=== PATIENT | male | born 1995 | race Caucasian/White ===

== ENCOUNTER 2022-02-26 05:36 | Emergency (ER) | payer OTHER ==
[~2022-02-26] VITALS: Ht 172.7 cm; Wt 68.0 kg
--- NOTE | 2022-02-26 06:20 | NUR ---
PATIENT BIBSELF C/O + SI PLAN TO OD AND DRINK [facility] IS A/O X 4, RR EVEN AND UNLABORED NO SOB NOTED. PATIENT TAKEN TO ER BED 18. PATIENT WANDED BY SECURITY AND BELONGINGS TAKEN AND PLACED IN LOCKER. PATIENT VSS, PATIENT IS AFEBRILE.
[2022-02-26 06:23] VITALS: BP 129/70
--- NOTE | 2022-02-26 06:25 | NUR ---
URINE COLLECTED AND SENT TO LAB
--- NOTE | 2022-02-26 06:43 | NUR ---
COVID SWAB COLLECTED SENT TO LAB
[2022-02-26 07:09] LABS: BASOPHILS # (AUTO) 0.1 K/uL (0.0-0.2); BASOPHILS % (AUTO) 0.6 % (0.0-2.0); EOSINOPHILS % (AUTO) 10.1 % (0.0-6.0); HEMATOCRIT 41 % (39-51); HEMOGLOBIN 13.9 g/dL (13.5-17.5); LYMPHOCYTES % (AUTO) 23.3 % (20.0-44.0); MEAN CORPUSCULAR HGB CONC 34 g/dl (31.0-36.0); MEAN CORPUSCULAR VOLUME 86 fL (80-96); MONOCYTES # (AUTO) 0.7 K/uL (0.1-1.30); MONOCYTES % (AUTO) 8.1 % (2.0-12.0); NEUTROPHILS # (AUTO) 4.9 K/uL (1.8-8.9); NEUTROPHILS % (AUTO) 57.9 % (43.0-81.0); PLATELET COUNT (AUTO) 325 K/uL (150-450); RED BLOOD CELL COUNT(AUTO) 4.77 MIL/uL (4.5-6.0); WHITE BLOOD COUNT (AUTO) 8.4 K/uL (4.3-11.0)
[2022-02-26 07:21] LABS: BILIRUBIN,URINE NEGATIVE (NEGATIVE); COLOR,URINE YELLOW (YELLOW); LEUKOCYTE ESTERASE ,URINE NEGATIVE (NEGATIVE); NITRITE, URINE NEGATIVE (NEGATIVE); PROTEIN,URINE NEGATIVE (NEGATIVE); UGLUCOSE NEGATIVE (NEGATIVE); UROBILINOGEN,URINE 0.2 EU/dL (0.2)
[2022-02-26 07:30] LABS: ALANINE AMINOTRANSFERASE 95 U/L (12-78); ALBUMIN 4.6 g/dL (3.4-5.0); ALCOHOL, BLOOD < 3 mg/dL (0-0); ALKALINE PHOSPHATASE 80 U/L (46-116); ASPARTATE AMINOTRANSFERASE 50 U/L (15-37); BILIRUBIN,DIRECT 0.1 mg/dL (0.0-0.2); BILIRUBIN,TOTAL 0.7 mg/dL (0.2-1.0); CALCIUM, SERUM 9.7 mg/dL (8.5-10.1); CARBON DIOXIDE 29 mmol/L (21-32); CHLORIDE 101 mmol/L (98-107); CREATININE 0.8 mg/dL (0.6-1.3); GLUCOSE 81 mg/dL (74-106); POTASSIUM 5.2 mmol/L (3.5-5.1); SODIUM SERUM 139 mmol/L (136-145); TOTAL PROTEIN, SERUM 7.8 g/dL (6.4-8.2); UREA NITROGEN, BLOOD 12 mg/dL (7-18)
[2022-02-26 07:35] LABS: ACETAMINOPHEN 0 ug/ml (10-30)
--- NOTE | 2022-02-26 08:18 | NUR ---
FAXED CLINICALS TO [facility] INTAKE.
--- NOTE | 2022-02-26 09:35 | NUR ---
PT ANXIOUS, WAS TOLD THAT HE WAS ALREADY PRESENTED TO [facility] AND IS WAITING FOR BED. WOULD LIKE TO BE DISCHARGED ANYWAY. LEFT AGAINST MEDICAL ADVISE.
[2022-02-26 09:58] LABS: BACTERIA,URINE Rare /HPF (None Seen); SQUAMOUS EPITHELIAL CELL,UR Few /HPF (None Seen); WBC,URINE 0-2 /HPF (0-3)
== END 2022-02-26 09:40 | disposition left against medical advice (07) ==
LOC: ER 05:49
DX: F15.10 Other stimulant abuse, uncomplicated (principal); F32.A Depression, unspecified; Z59.00 Homelessness unspecified; Z20.822 Contact with and (suspected) exposure to COVID-19; Z53.29 Procedure and treatment not carried out because of patient's decision for other reasons; F17.200 Nicotine dependence, unspecified, uncomplicated
CPT/HCPCS: 99283; 85025; 80048; 80076; 81001; 36415; 87426; 80143; 80320; 80307; C9803; G0480

== ENCOUNTER 2022-03-03 13:49 | Emergency (ER) | payer OTHER ==
[~2022-03-03] VITALS: Ht 170.2 cm; Wt 65.8 kg
[2022-03-03 14:40] LABS: BASOPHILS % (AUTO) 0.6 % (0.0-2.0); EOSINOPHILS % (AUTO) 8.9 % (0.0-6.0); HEMATOCRIT 40 % (39-51); HEMOGLOBIN 13.4 g/dL (13.5-17.5); LYMPHOCYTES # (AUTO) 1.9 K/uL (0.8-4.8); LYMPHOCYTES % (AUTO) 33.6 % (20.0-44.0); MEAN CORPUSCULAR HGB CONC 33 g/dl (31.0-36.0); MEAN CORPUSCULAR VOLUME 87 fL (80-96); MONOCYTES # (AUTO) 0.4 K/uL (0.1-1.30); MONOCYTES % (AUTO) 7.1 % (2.0-12.0); NEUTROPHILS # (AUTO) 2.8 K/uL (1.8-8.9); NEUTROPHILS % (AUTO) 49.8 % (43.0-81.0); PLATELET COUNT (AUTO) 358 K/uL (150-450); RED BLOOD CELL COUNT(AUTO) 4.64 MIL/uL (4.5-6.0); WHITE BLOOD COUNT (AUTO) 5.5 K/uL (4.3-11.0)
[2022-03-03 15:21] LABS: ALANINE AMINOTRANSFERASE 35 U/L (12-78); ALBUMIN 3.9 g/dL (3.4-5.0); ALCOHOL, BLOOD < 3 mg/dL (0-0); ALKALINE PHOSPHATASE 64 U/L (46-116); ASPARTATE AMINOTRANSFERASE 14 U/L (15-37); BILIRUBIN,DIRECT 0.1 mg/dL (0.0-0.2); BILIRUBIN,TOTAL 0.3 mg/dL (0.2-1.0); CALCIUM, SERUM 8.6 mg/dL (8.5-10.1); CARBON DIOXIDE 30 mmol/L (21-32); CHLORIDE 105 mmol/L (98-107); GLUCOSE 96 mg/dL (74-106); POTASSIUM 4.1 mmol/L (3.5-5.1); SODIUM SERUM 141 mmol/L (136-145); TOTAL PROTEIN, SERUM 6.8 g/dL (6.4-8.2); UREA NITROGEN, BLOOD 10 mg/dL (7-18)
[2022-03-03 15:27] LABS: ACETAMINOPHEN 0 ug/ml (10-30)
[2022-03-03 15:43] LABS: CREATININE 0.8 mg/dL (0.6-1.3)
--- NOTE | 2022-03-03 19:30 | NUR ---
bibs to er bed 18. aaox4. not in distress. ambulatory. came in seeking medical clearance for voluntary psych admission. pt reports that he is feeling suicidal but no specific plan. pt was gown, belongings in locker and wanded by security. sitter within sight. will continue to monitor
--- NOTE | 2022-03-03 20:30 | NUR ---
BELONGINGS TAKEN AND PUT IN A LOCKER
[2022-03-03 21:04] LABS: BILIRUBIN,URINE NEGATIVE (NEGATIVE); COLOR,URINE YELLOW (YELLOW); LEUKOCYTE ESTERASE ,URINE SMALL (NEGATIVE); NITRITE, URINE NEGATIVE (NEGATIVE); PH,URINE 7.5 (5.0-8.0); PROTEIN,URINE NEGATIVE (NEGATIVE); UGLUCOSE NEGATIVE (NEGATIVE)
[2022-03-03 21:21] LABS: BACTERIA,URINE RARE /HPF (None Seen); RBC,URINE 0-2 /HPF (0-2); SQUAMOUS EPITHELIAL CELL,UR 0-2 /HPF (None Seen)
--- NOTE | 2022-03-03 22:04 | NUR ---
FACESHEET AND CLINICALS FAXED TO [facility].
--- NOTE | 2022-03-04 04:00 | NUR ---
pt in bed sleeping. no distress noted
--- NOTE | 2022-03-04 10:15 | NUR ---
MAURICIO ECHEVARRIA AT BEDSIDE FOR EVAL
--- NOTE | 2022-03-04 10:30 | NUR ---
SHANIQUE ECHEVARRIA SPOKE WITH CALLY IN [facility] AND SAID THAT HE WILL LOOK INTO HIS CASE
--- NOTE | 2022-03-04 12:14 | NUR ---
PT MADE AWARE OF HIS INSURANCE SITUATION. WAS SEEN BY [employer] AND WAS PROVIDED W/ HOMELESS SNF REFFERALS. DENIES SI/HI AT THIS TIME. DISCHARGED IN STABLE CONDITION.
[2022-03-04 12:18] VITALS: BP 121/84
--- NOTE | 2022-03-04 12:18 | NUR ---
Discharge note: GONZALES met with pt. at bedside. The pt. is alert & oriented 4 and makes pooreye contact. SW notified him that he was denied admission to [facility] and that based on his insurance he would have to seek treatment in the [facility] or he may go to [facility] if symptoms return. Pt. expresses understanding. The pt. denied any current SI/HI and denied hallucinations. GONZALES provided pt. withthe following homeless and mental health resources and pt. accepted them. Pt. refused to sign homeless waiver and it was placed in the chart. GONZALES discussed DC plan with MD Wright. Year-round shelters: [facility] [address] [place], [place] [phone] ; [facility] [address] [place] [address]; [facility] [address] [facility]. [facility] [address] Hygiene: [facility]: [address] [place] [facility]. [place] ; [facility] [address] [facility] ; [facility] 6909 [facility], [place] [facility] . Food Resources: [place] [facility] at [facility]- [address] [facility]; Meet Each Need with Dignity ([facility]) [address] [facility]; [facility] 4366 [facility]; [facility] 8567 [facility]. Mental Health resources provided: [facility] [address] [place] [address] ; [facility] [address] [facility] [address], [place] [address] ; [facility] [address] [address] ; [facility] [address] [place], [place] [phone] Healthcare Clinics: [facility] [address] [facility], [address] [place]. [place] ; [facility] [address] [facility] [address] [place] [address]; [facility] [address] [facility] [place] [address] 278) [phone] Counseling--Outpatient [facility] [address] [facility], [place] [address] (Specializes in in-depth psychotherapy for emotional distress: anxiety, depression, interpersonal conflicts, life transitions, childhood abuse) [facility] [address] [place] [address] (Assist with solving problem marital difficulties, separation & divorce, aging parents, & grief, chronic & terminal illness) [facility] [address] [place] [address] (Deal with loss & grief, anxiety, marital difficulties) Homebound/Mental Health Services [address] [facility], [address] [place] [address] (Provide in-home mental services to people who are incapable of leaving their homes) [facility]eds of the Elderly Senior Service/Resource Center [address] [place] [address] [facility] 6514 [facility] Hospital[facility] [place] [address] PSYCHIATRIC OUTPATIENT SERVICES [facility] Partial Hospitalization and Intensive Outpatient Program (Managed Care and [place] Only)[address] [address]. [facility] [phone] [facility] Partial Hospitalization and Outpatient Rfcusao48452 [facility]. [address] [place], [place] [phone] [facility] Aro[address] [facility] [address] [place], [place] [phone] [facility] Partial Hospitalization and Outpatient [id number] [facility] SlimRANGELY, [phone] Substance Abuse resources provided included: [facility] Substance Abuse Self-Helpline ([facility]) ; [facility]LP [address] [facility]. [place] [address] ; [facility] [address] [facility] [address] ; [facility] [address] [place] [address] [facility] [phone] ; [facility] [address] [facility] [phone] ; [facility] [address] Javier Sm[address] [facility] [address] ; [facility] [place] 900 [facility] [phone] ; [facility] Substance Abuse Helpline([facility] ; [facility] ; [facility]ically [facility] [place]; [facility]; [facility] Javier Smalls; [facility] [place]; [place]; [facility] [place]; [facility] [place]; Alcoholics Anonymous -SFV; [place]-Tnpy-Duislbw ; Marijuana Anonymous -SFV; Narcotics Anonymous www.na.org;
== END 2022-03-04 12:19 | disposition home or self-care (01) ==
LOC: ER 13:50
DX: R45.851 Suicidal ideations (principal); F23 Brief psychotic disorder; F15.10 Other stimulant abuse, uncomplicated; Z20.822 Contact with and (suspected) exposure to COVID-19; Z59.02 Unsheltered homelessness; F17.200 Nicotine dependence, unspecified, uncomplicated
CPT/HCPCS: 99285; 85025; 80048; 87086; 80076; 81001; 36415; 87426; 80143; 80320; 80307; C9803; G0480